=== PATIENT | female | born 1980 | race Two or more races ===

== ENCOUNTER 2023-10-10 11:30 | Emergency (ER) | payer OTHER ==
[~2023-10-10] VITALS: Ht 160 cm; Wt 63.5 kg
[2023-10-10 13:00] LABS: URINE BILIRRUBIN NEGATIVE (NEGATIVE); URINE BLOOD LARGE; URINE GLUCOSE NEGATIVE (NEGATIVE); URINE LEUKOCYTE NEGATIVE; URINE NITRATE NEGATIVE; URINE UROBILINOGEN 0.2 E.U./dl
[2023-10-10 13:13] LABS: CALCIUM 9.3 mg/dL (8.5-10.1); CREATININE SERUM 1.03 mg/dL (0.55-1.02); GFR 58.48; POTASSIUM 3.55 mEq/L (3.5-5.1)
[2023-10-10 13:15] LABS: HEMATOCRIT 40.5 % (36.0-45.00); HEMOGLOBIN 13.6 g/dL (12.0-15.00); MEAN CELL VOLUME 90.5 fL (80.00-100.00); MEAN CORPUSCULAR HEMOGLOBIN 30.4 pg (27.00-32.0); MEAN CORPUSCULAR HGB CONC 33.6 g/dl (32.0-36.0); PLATELET COUNT 265 K/uL (150-450); RED BLOOD COUNT 4.47 M/uL (4.00-6.00); RED CELL DISTRIBUTION WIDTH 12.5 % (11.5-14.5)
[2023-10-10 13:35] LABS: URINE PROTEIN 100 (NEGATIVE)
[2023-10-10 13:36] LABS: URINE APPEARANCE TURBID; URINE COLOR YELLOW
[2023-10-10 13:37] LABS: URINE BACTERIA FEW; URINE CRYSTALS NEGATIVE /HPF; URINE MUCUS NEGATIVE; URINE RBC LOADED /HPF; URINE WBC 0-2 /hpf; URINE YEAST NEGATIVE /hpf
== END 2023-10-10 16:16 | disposition home or self-care (01) ==
LOC: ER 11:30 → EDBD 11:30 → ER 13:18
PROVIDERS: General Practice
DX: N20.1 Calculus of ureter (principal)

== ENCOUNTER 2023-12-25 15:19 | Emergency (ER) | payer OTHER ==
[~2023-12-25] VITALS: Ht 157.5 cm; Wt 62.6 kg
== END 2023-12-25 19:27 | disposition home or self-care (01) ==
LOC: ER 15:19
DX: J06.9 Acute upper respiratory infection, unspecified (principal); R53.81 Other malaise; Z20.822 Contact with and (suspected) exposure to COVID-19

== ENCOUNTER → 2024-01-24 10:06 | Outpatient (CLI) | payer OTHER ==
[2024-01-24 10:51] LABS: HEMATOCRIT 38.2 % (36.0-45.00); HEMOGLOBIN 13.1 g/dL (12.0-15.00); MEAN CELL VOLUME 89.4 fL (80.00-100.00); MEAN CORPUSCULAR HEMOGLOBIN 30.7 pg (27.00-32.0); MEAN CORPUSCULAR HGB CONC 34.3 g/dl (32.0-36.0); PLATELET COUNT 274 K/uL (150-450); RED BLOOD COUNT 4.27 M/uL (4.00-6.00); RED CELL DISTRIBUTION WIDTH 13.1 % (11.5-14.5)
[2024-01-24 11:36] LABS: URINE APPEARANCE Clear; URINE BILIRRUBIN Negative (NEGATIVE); URINE BLOOD Large; URINE COLOR Yellow; URINE GLUCOSE Negative (NEGATIVE); URINE LEUKOCYTE Small; URINE NITRATE Negative; URINE PROTEIN Negative (NEGATIVE); URINE UROBILINOGEN 0.2 E.U./dl
[2024-01-24 11:38] LABS: URINE EPITHELIAL CELLS 12.8 uL (0.0-38.8); URINE RBC 58.6 uL (0.0-20.8); URINE WBC 40.1 uL (0.0-23.2)
== END | disposition home or self-care (01) ==
LOC: LAB 10:06
PROVIDERS: ATTEND Family Medicine Adult Medicine
DX: N20.0 Calculus of kidney (principal); N39.0 Urinary tract infection, site not specified